=== PATIENT | male | born 1955 | race Caucasian/White ===

== ENCOUNTER 2020-12-24 11:33 | Emergency (ER) | payer MEDICARE, OTHER ==
[2020-12-24 11:43] VITALS: BP 120/73; PULSE 67; RESP 18; TEMP 97.7
[2020-12-24] MEDS ORDERED: DIPH,PERTUS(ACELL)TETVAC-LF 0.5 ML VIAL IM ONE (12:00)
[2020-12-24] MEDS ORDERED: LIDOCAINE 1% INJ 10MG/ML (20 ML MDV) SQ ONE (12:01)
--- NOTE | 2020-12-24 12:02 | ED ---
Wound/Laceration HPI - General Chief Complaint: Wound/Laceration Stated Complaint: finger lac Time Seen by Provider: 12/24/20 11:55 Source: patient, family Mode of arrival: ambulatory Limitations: no limitations - History of Present Illness Initial Comments: Patient is 65-year-old male who presented to the ER with a left fifth finger laceration. Patient stated that he snagged his finger on a nail all doing some work. He moved his hand while was snagged in it sliced filleted the pad of his fifth finger. He denied any pain. Just noted that it was bleeding pretty profusely. Patient stated that he didn't want to come to the ER but urged him to just because it was bleeding pretty bad. Patient had no other complaints or issues. Patient cannot remember his last tetanus shot. He denied any weakness, numbness, tingling in the left fifth finger. He denies any chest pain, shortness of breath, headache, nausea, vomiting, diarrhea, constipation, fever, fatigue, chills, night sweats - Related Data Home Medications Medication Instructions Recorded Confirmed No Known Home Medications 04/27/15 04/27/15 Allergies Allergy/AdvReac Type Severity Reaction Status Date / Time No Known Allergies Allergy Verified 12/24/20 11:43 Review of Systems ROS Statement: Those systems with pertinent positive or pertinent negative responses have been documented in the HPI. ROS Other: All systems not noted in ROS Statement are negative. Past Medical History Past Medical History: No Reported History History of Any Multi-Drug Resistant Organisms: None Reported Past Surgical History: No Surgical Hx Reported Past Psychological History: No Psychological Hx Reported Smoking Status: Current every day smoker Past Alcohol Use History: Occasional Past Drug Use History: None Reported General Exam Limitations: no limitations General appearance: alert, in no apparent distress Head exam: Present: atraumatic, normocephalic, normal inspection Eye exam: Present: normal appearance, PERRL, EOMI. Absent: scleral icterus, conjunctival injection, periorbital swelling Neck exam: Present: normal inspection. Absent: tenderness, meningismus, lymphadenopathy Respiratory exam: Present: normal lung sounds bilaterally. Absent: respiratory distress, wheezes, rales, rhonchi, stridor Cardiovascular Exam: Present: regular rate, normal rhythm, normal heart sounds. Absent: systolic murmur, diastolic murmur, rubs, gallop, clicks Extremities exam: Present: normal inspection, full ROM, normal capillary refill. Absent: tenderness, pedal edema, joint swelling, calf tenderness Neurological exam: Present: alert, oriented X3, CN II-XII intact Psychiatric exam: Present: normal affect, normal mood Skin exam: Present: warm, dry, intact, normal color, other (Laceration to the distal pad of the left fifth finger. Margins were clean laceration was flattened V). Absent: rash Course Vital Signs 12/24/20 11:40 Temperature 97.7 F Pulse Rate 67 Respiratory 18 Rate Blood Pressure 120/73 O2 Sat by Pulse 99 Oximetry Procedures - Laceration Laceration #1 Consent Obtained: verbal consent Indication: laceration Site: other (Distal left fifth digit) Size (cm): 2 Description: flap (With clean borders) Anesthetic Used: lidocaine 1% Anesthesia Technique: local infiltration Pre-repair: irrigated extensively Type of Sutures: vicryl Size of Sutures: 5-0 Number of Sutures: 6 Technique: simple, interrupted Patient Tolerated Procedure: well, no complications Medical Decision Making - Medical Decision Making 65-year-old with left fifth digit laceration. Patient tolerated sutures well. Disposition Clinical Impression: Laceration Disposition: HOME SELF-CARE Condition: Stable Instructions (If sedation given, give patient instructions): Laceration (ED), Care For Your Stitches (ED) Additional Instructions: Please return to the Emergency Department if symptoms worsen or any other concerns. Told patient to follow-up in 5-7 days for suture removal either in the ER or with primary care. Is patient prescribed a controlled substance at d/c from ED?: No Referrals: Raul Scott DO [Primary Care Provider] - 1-2 days Decision Time: 13:06
== END 2020-12-24 13:14 | disposition home or self-care (01) ==
LOC: EC 11:33
DX: S61.217A Laceration without foreign body of left little finger without damage to nail, initial encounter (principal); F17.200 Nicotine dependence, unspecified, uncomplicated; Z23 Encounter for immunization; W23.0XXA Caught, crushed, jammed, or pinched between moving objects, initial encounter
CPT/HCPCS: 90715; 99282; 90471; 12001; J2001

== ENCOUNTER → 2021-12-13 | Outpatient (CLI) | payer MEDICARE, OTHER ==
--- NOTE | 2021-12-14 09:02 | XR ---
EXAMINATION TYPE: XR chest 2V DATE OF EXAM: 12/13/2021 COMPARISON: NONE TECHNIQUE: PA and lateral views submitted. HISTORY: Cough FINDINGS: Diffuse hyperexpansion. Biapical pleural thickening. Heart size normal. Vague attenuation the left up per lobe adjacent to the left hilum. Hypertrophic and degenerative change of the spine. No pneumothorax or pleural effusion. IMPRESSION: 1. COPD with a 3.4 cm area of nodular attenuation left perihilar region and the lingular segment left upper lobe. Although this could represent pneumonia would recommend CT of the chest to exclude neopl asm.
== END | disposition home or self-care (01) ==
LOC: RADXRYALE 16:17
PROVIDERS: ATTEND Physician Assistant
DX: J44.9 Chronic obstructive pulmonary disease, unspecified (principal); R91.8 Other nonspecific abnormal finding of lung field
CPT/HCPCS: 71046

== ENCOUNTER → 2021-12-19 | Outpatient (CLI) | payer MEDICARE, OTHER ==
--- NOTE | 2021-12-19 09:52 | CT ---
EXAMINATION TYPE: CT chest wo con DATE OF EXAM: 12/19/2021 COMPARISON: Chest x-ray 12/13/2021 HISTORY: cough CT DLP: 480 mGycm. Automated Exposure Control for Dose Reduction was Utilized. TECHNIQUE: CT scan of the thorax is performed without IV contrast. FINDINGS: LUNGS: There is left upper lobe lung mass measuring approximately 3.4 cm in AP dimension by 2.4 cm in transverse by 2.9 cm in cephalad to caudal mention with spiculated margins, pleural extensions, spic ulations extending to the mediastinum. Underlying centrilobular and paraseptal emphysematous changes are extensive. Additional area of abnormal densities present in the left upper lobe laterally and mor e inferiorly which shows a somewhat lobular appearance and measures approximately 2.3 cm in AP dimens ion by 15 mm in transverse dimension by 14 mm in cephalad to caudal dimension, there are 2 distinct l obular masses at this level, smaller lesion more centrally measures approximately 13 mm in greatest d imension by 13 mm x 1 cm. There is pleural extension anterolaterally, some focal pleural thickening p resent. MEDIASTINUM: Lack of IV contrast is noted to limit evaluation for mediastinal and especially hilar ad enopathy. Suspect there is left hilar adenopathy, possible encasement of left upper lobe bronchus. No pericardial effusion. There are coronary artery calcifications. OTHER: Root of the aorta is enlarged at 4.3 cm. IMPRESSION: Findings worrisome for bronchogenic carcinoma, possible metastasis. Aortic aneurysm. Cons ider pulmonary consult. A Yellow level critical message alert has been initiated for Raul Scott DO via the [employer] Critical Results System on 12/19/2021 9:49 AM. This message alert has been sent to Raul ureña DO via the preferences provided by the clinician for the receipt of Radiology Critical Findings. Message ID [id number].
== END | disposition home or self-care (01) ==
LOC: RADCTMAIN 06:56
PROVIDERS: ATTEND Family Medicine
DX: R91.8 Other nonspecific abnormal finding of lung field (principal); I71.2 Thoracic aortic aneurysm, without rupture
CPT/HCPCS: 71250

== ENCOUNTER 2021-12-27 10:38 | Day surgery (SDC) | payer MEDICARE, OTHER ==
[2021-12-25 14:56] VITALS: BMI 21.4
[~2021-12-27 10:38] MED LIST: ALBUTEROL NEB (CONC) 2.5 MG/0.5 ML INHALATION ONE; LACTATED RINGERS 1,000 ML IV SCH; LIDOCAINE 2% (PF) 20 MG/ML 5 ML VIAL INHALATION ONE; LIDOCAINE VISCOUS 300 MG/15 ML CUP MUCOUS MEM ONE; SODIUM CHLORIDE 0.9% 1,000 ML IV SCH
[2021-12-27] MEDS ORDERED: LIDOCAINE 1% (10MG/ML) FOR IV START INTRADERMA ONE (11:23)
--- NOTE | 2021-12-27 12:22 | CT ---
EXAMINATION TYPE: CT Chest wo con Veran Protocol DATE OF EXAM: 12/27/2021 COMPARISON: Chest CT 8 days ago. HISTORY: Veran Protocol CT DLP: 657 mGycm Automated exposure control for dose reduction was used. FINDINGS: Exam is for bronchoscopy planning and not for diagnostic purposes. Background moderate underlying emp hysematous changes redemonstrated with persistent anterior left upper lung lobulated mass measuring 3 .4 x 2.4 cm axial image 36 series 6 current study. There is adjacent scarring with slight nodule or n odularity axial image 42 redemonstrated. Coronary artery calcification is again seen. IMPRESSION: As above.
[2021-12-27] MEDS ORDERED: ESMOLOL 100 MG/10 ML VIAL ONE (12:41)
[2021-12-27] MEDS ORDERED: ROCURONIUM 10 MG/ML (5 ML VIAL) IV ONE (12:41)
[2021-12-27] MEDS ORDERED: LIDOCAINE 1% INJ 10MG/ML (20 ML MDV) ONE (12:41)
[2021-12-27] MEDS ORDERED: fentaNYL (PF) 50 MCG/ML 2 ML AMP ONE (12:41)
[2021-12-27] MEDS ORDERED: GLYCOPYRROLATE 0.2 MG/ML 2 ML VIAL ONE (12:41)
[2021-12-27] MEDS ORDERED: PROPOFOL 10 MG/ML 20 ML VIAL IV ONE (12:41)
[2021-12-27] MEDS ORDERED: MIDAZOLAM 2 MG/2 ML VIAL ONE (12:41)
[2021-12-27] MEDS ORDERED: SUCCINYLCHOLINE CHLORIDE VIAL 200 MG/10 ML VIAL IV ONE (12:41)
[2021-12-27] MEDS ORDERED: NEOSTIGMINE 1 MG/ML 10 ML VIAL ONE (12:41)
--- NOTE | 2021-12-27 13:59 | P.PCN ---
Date of Procedure: 12/27/21 Preoperative Diagnosis: ISABELA mass Left Hilar adenopathy Postoperative Diagnosis: 1 left upper lobe mass 2 left hilar lymphadenopathy 3 extensive compression of the left upper lobe bronchus causing significant narrowing of the radius segments of the left upper lobe along with evidence of some endobronchial invasion and irregularities affecting left upper lobe bronchus. Procedure(s) Performed: 1 Navigational bronchoscopy 2 Endobronchial biopsies , left upper lobe bronchus 3 Endobronchial brushing left upper lobe bronchus 4 bronchioalveolar lavage, left upper lobe bronchus 5 EBUS and EBUS guided transbronchial needle aspirate of left hilar lymph node Anesthesia: MARINAA Surgeon: Mirela Calero Estimated Blood Loss (ml): 5 Pathology: other Condition: stable Disposition: same day Operative Findings: After obtaining the consent the patient was taken to the OR suite he was intubated and put on MV by anesthesia then the scope was advanced to the ET tube until the Trachea was seen and it was normal and then the sandhya appears normal then the scope advanced to the left main and ISABELA and immediately was clear that the left upper lobe bronchus was extrinsically compressed and endobronchially, there was significant irregularities causing narrowing of the left upper lobe bronchus with reduction in the caliber by around 80-90%. Based on that, I was unable to advancement bronchoscope to evaluate LB 1, LB 2 and LB 3. The scope advanced to the lingula and the LB4 and LB5 were seen and no endobronchial lesions were seen the scope retracted and advanced to the left lower lobes LB6 to LB12 were seen one by one and no endobronchial lesions, then the scope was retracted back to the sandhya and advanced to the Right main and RUL RB1 and RB2 and RB3 were seen one by one and no endobronchial lesions were seen the scope then retracted and advanced to the BI and RML RB4 and RB5 were seen and no endobronchial lesions were seen then it was retracted and advanced to the RLL RB6 to RB12 were seen one by one and no endobronchial lesions. As mentioned, I was unable to advance the bronchoscope into the left upper lobe bronchus. Based on that, I performed endobronchial biopsies of the left upper lobe bronchus and I also performed endobronchial brushings and bronchial lavage of the left upper lobe was done by a total of 80cc of fluid was infused and with 20 mL of aspirate was obtained. Then EBUS was used and the lymph nodes were examined. The rectal examination of the left side involving the left paratracheal area that showed no evidence of any lymphadenopathy. Distally, at the level of the distal left main sandhya and secondary sandhya left upper and left lower lobe, there was significant amount of endobronchial irregularities and I was unable to push the EBUS past the main sandhya. Nevertheless, at the distal left mainstem bronchus, left hilar mass/lymphadenopathy was observed consistent with station 10 L lymph nodes. EBUS guided transbronchial needle aspirate was obtained and multiple passes were taken and samples were evaluated at the bedside by pathology. Several passes were obtained and the fifth past showed evidence of abnormal cells consistent with malignancy. The rest of samples were placed and formalin and sent for cellblock. Patient rated the procedure well. The patient was extubated and transferred to recovery in stable condition. The chest x-ray is to follow.
[2021-12-27 14:17] VITALS: TEMP 97.4
[2021-12-27 14:39] VITALS: PULSE 72; RESP 18
[2021-12-27 15:25] VITALS: BP 122/73
== END 2021-12-27 15:41 | disposition home or self-care (01) ==
LOC: ORWHC2ENDO 10:38
PROVIDERS: ATTEND Internal Medicine Critical Care Medicine
DX: C34.12 Malignant neoplasm of upper lobe, left bronchus or lung (principal); C96.9 Malignant neoplasm of lymphoid, hematopoietic and related tissue, unspecified; H91.93 Unspecified hearing loss, bilateral; N40.1 Benign prostatic hyperplasia with lower urinary tract symptoms; R33.8 Other retention of urine; I10 Essential (primary) hypertension; J44.9 Chronic obstructive pulmonary disease, unspecified; E78.2 Mixed hyperlipidemia; E55.9 Vitamin D deficiency, unspecified; G47.00 Insomnia, unspecified; I25.10 Atherosclerotic heart disease of native coronary artery without angina pectoris; I71.2 Thoracic aortic aneurysm, without rupture; Z81.8 Family history of other mental and behavioral disorders; Z87.891 Personal history of nicotine dependence; Z98.52 Vasectomy status; Z98.890 Other specified postprocedural states; Z79.82 Long term (current) use of aspirin; Z79.51 Long term (current) use of inhaled steroids; Z79.899 Other long term (current) drug therapy
CPT/HCPCS: 88104; 88108; 88305; 88173; 88342; 88341; 71250; 31625; 31623; 31624; 31627; 31652; J2250; J0330; J2710; J2001; J3010; J2704; 31629

== ENCOUNTER → 2022-01-04 | Outpatient (CLI) | payer MEDICARE, OTHER ==
--- NOTE | 2022-01-09 13:31 | PE ---
Nuclear medicine PET/CT HISTORY: solitary pulmonary nodule left, initial Patient received 11 mCi F-18 FDG intravenously in delayed scanning was performed from the skull base to the mid thighs. A localization and attenuation correction CT scan was performed. Comparison to chest CT 12/19/2021 Chest and neck: There is no cervical or supraclavicular adenopathy. Aorticopulmonary window deandre and left hilar adenopathy is present, encasement of the left upper lobe bronchus is associated with hypermetabolic uptake, SUV 12.5. The left upper lobe mass is again seen and shows associated uptake SUV 18 with extension to the pleural surface, mediastinal surface, smalle r area of nodularity pleural thickening is again seen without significant uptake, SUV 1.7 anteriorly. There is underlying emphysema. No axillary adenopathy. There are coronary artery calcifications, no pleural or pericardial effusion. Incidental probable naz aceous cyst over the upper back on the left measures 3.8 cm. ABDOMEN: There is no evident liver mass or retroperitoneal adenopathy. Gallbladder, left adrenal glan d, spleen and pancreas are unremarkable. Some mild increased uptake at the upper pole the left kidney is indeterminate. There is some mild uptake associated with the right adrenal gland as compared to t he left. There is no ascites. No bowel obstruction. Aorta shows atheromatous change. Prostate shows a ssociated calcification. No pelvic adenopathy or free fluid. Uptake along the bowel is felt likely to be physiologic. Osseous structures: There is a focus of uptake along the proximal right femoral diaphysis medially, a ssociated focus of cortical destruction is noted, SUV 5.8. Lytic lesion also is present involving the posterior elements of L5 at the midline and extending on the left, SUV is 13.7. There is a focus of uptake present at the posterior aspect of the right ischium possibly within the soft tissues and also the lateral aspect of the right hip joint \at the posterior aspect of the ischial tuberosity of ques tionable clinical significance. 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
== END | disposition home or self-care (01) ==
LOC: RADPETMAIN 07:34
PROVIDERS: ATTEND Internal Medicine Critical Care Medicine
DX: C79.51 Secondary malignant neoplasm of bone (principal); C34.12 Malignant neoplasm of upper lobe, left bronchus or lung
CPT/HCPCS: 78815; A9552

== ENCOUNTER → 2022-01-05 | Outpatient (CLI) | payer MEDICARE, OTHER ==
--- NOTE | 2022-01-05 10:59 | MR ---
EXAMINATION TYPE: MR brain wo/w con DATE OF EXAM: 01/05/2022 COMPARISON: NONE HISTORY: Lung cancer, evaluate for metastatic disease. TECHNIQUE: Multiplanar, multisequence images of the brain and brainstem is performed without and with IV contras t, utilizing 7 mL intravenous Gadavist . FINDINGS: Diffusion weighted images demonstrate no evidence of a recent infarct or other diffusion ab normality. There is mild ventricular and sulcal prominence. A few tiny scattered foci T2 hyperintens ity seen throughout the white matter bilaterally. Approximately 5 -8 tiny scattered foci of T2 hyperi ntensity are seen. Midline structures demonstrate normal morphology. The craniocervical junction appears within normal limits. Post contrast images demonstrate no abnormal enhancement. The dural venous sinuses appear pa tent. The visualized sinuses are clear and the globes are intact. Nasal septum is deviated to the lef t of midline. IMPRESSION: 1. No abnormal enhancing masses to suggest metastatic disease to the brain. 2. Background mild diffuse age-related cerebral atrophy and chronic small vessel ischemic change is a ppreciated.
== END | disposition home or self-care (01) ==
LOC: RADMRIMAIN 09:50
PROVIDERS: ATTEND Internal Medicine Hematology & Oncology
DX: C34.32 Malignant neoplasm of lower lobe, left bronchus or lung (principal)
CPT/HCPCS: 70553; A9585

== ENCOUNTER → 2022-01-10 | Outpatient (CLI) | payer MEDICARE, OTHER ==
--- NOTE | 2022-01-10 10:46 | XR ---
EXAMINATION TYPE: XR femur RT DATE OF EXAM: 01/10/2022 COMPARISON: PET CT 01/04/2022 HISTORY: 66-year-old male C34.32, lung cancer, positive PET scan right femur. TECHNIQUE: 2 views FINDINGS: Mild age-related degenerative spurring of the right hip with relative preservation of hip joint space . There is some focal cortical permeative lucency involving the medial cortex of the proximal femoral s haft. This corresponds to the area of increased uptake on PET scan. No acute fracture or dislocation. IMPRESSION: 1. Some focal permeative lucency involving the medial cortex of the proximal femoral shaft correspond ing to the area of abnormal uptake on PET/CT. Findings suggest a cortical metastasis. 2. If the lesion enlarges, there could be subsequent risk for pathologic fracture.
== END | disposition home or self-care (01) ==
LOC: RADXRMAIN 10:13
PROVIDERS: ATTEND Internal Medicine Hematology & Oncology
DX: C34.32 Malignant neoplasm of lower lobe, left bronchus or lung (principal); E78.5 Hyperlipidemia, unspecified; I10 Essential (primary) hypertension; I25.2 Old myocardial infarction

== ENCOUNTER → 2022-03-13 | Outpatient (CLI) | payer MEDICARE, OTHER | END | disposition home or self-care (01) | LOC: RADMRIMAIN 14:55 | PROVIDERS: ATTEND Internal Medicine Hematology & Oncology | DX: Z53.9 Procedure and treatment not carried out, unspecified reason (principal) ==

== ENCOUNTER → 2022-03-27 | Outpatient (CLI) | payer MEDICARE, OTHER ==
--- NOTE | 2022-03-28 02:19 | MR ---
EXAMINATION TYPE: MR hip RT wo/w con DATE OF EXAM: 03/27/2022 COMPARISON: None HISTORY: Right hip pain x 3 months, hx lung cancer. CONTRAST: Standard multiplanar, multisequence MRI departmental protocol images were obtained without contrast a nd with 8 mL intravenous Gadavist gadolinium contrast. Multiplanar multi echo imaging of the right hip without and with IV contrast. The proximal femurs and hip joints are intact. Acetabula appear intact. I see no focal bone destructi on. No evidence of avascular necrosis. Urinary bladder distends smoothly. No free fluid in the pelvis. No evidence of inguinal hernia. There is right-sided scrotal hydrocele. There is no evidence of hip joint effusion. No pathologic enhancem ent. No evidence of soft tissue mass. IMPRESSION: Negative MR scan of the right hip. No evidence of metastatic disease. No evidence of avascular necros is.
== END | disposition home or self-care (01) ==
LOC: RADMRIMAIN 20:34
PROVIDERS: ATTEND Internal Medicine Hematology & Oncology
DX: M25.551 Pain in right hip (principal); Z85.118 Personal history of other malignant neoplasm of bronchus and lung
CPT/HCPCS: 73723; A9585

== ENCOUNTER → 2022-04-11 | Outpatient (CLI) | payer MEDICARE, OTHER ==
--- NOTE | 2022-04-11 15:40 | XR ---
EXAMINATION TYPE: XR femur RT DATE OF EXAM: 04/11/2022 CLINICAL HISTORY: Pain TECHNIQUE: Two views of the right femur are obtained. COMPARISON: 01/10/2022 FINDINGS: There is no acute fracture or dislocation seen in the right femur. Mild axial narrowing of the joint space. Vascular calcifications. Previous area of reduced mineralization of the proximal fe moral cortex is stable to the prior exam. No new areas of lucency identified. Arthropathy of the knee joint. IMPRESSION: 1. Focal permeative lucency involving the medial cortex proximal right femur stable. Recommend bone s can. 2. Hip and knee arthropathy.
== END | disposition home or self-care (01) ==
LOC: RADXRMAIN 15:09
PROVIDERS: ATTEND Nurse Practitioner Adult Health
DX: M12.861 Other specific arthropathies, not elsewhere classified, right knee (principal); M12.851 Other specific arthropathies, not elsewhere classified, right hip; R93.7 Abnormal findings on diagnostic imaging of other parts of musculoskeletal system

== ENCOUNTER → 2022-05-10 | Outpatient (CLI) | payer MEDICARE, OTHER ==
--- NOTE | 2022-05-17 12:59 | PE ---
Nuclear medicine PET/CT HISTORY: Lung carcinoma, follow-up, subsequent, C 34.32 Patient received 13.6 mCi F-18 FDG intravenously and delayed scanning was performed from the skull ba se to the mid thighs. A localization and attenuation correction CT scan was performed. Correlation to prior nuclear medicine PET/CT 01/04/2022 Average mediastinal uptake SUV is 1.3, average liver uptake SUV is 2.1 Chest and neck: There is no cervical or supraclavicular adenopathy. No axillary or hilar adenopathy. Patient's left lung mass shows only mild hypermetabolic uptake SUV 3.2 in the left upper lobe, reduce d from previous exam, the mass also shows a reduction in size and now measures 2.7 cm in AP dimension as compared to previous exam when it measured 3.8 cm, there is some local scarring present, pleural extension similar to prior without significant uptake. The marked mediastinal uptake seen on prior ex am has resolved, aorticopulmonary window nodes with SUV 2.3, adenopathy is decreased in size. There i s no pleural or pericardial effusion. At the left upper lobe there is a nodule, axial image 105 measu ring only 4 to 5 mm in size, some groundglass opacity noted on axial image 96 at the left upper lobe was not seen on prior, there are some interstitial changes present, emphysema is noted. There is sola nary artery calcification. ABDOMEN: There is no adrenal mass or retroperitoneal adenopathy. No evident ascites or suspicious upt kamilla. Osseous structures show improvement in abnormal uptake. IMPRESSION: Tumor response as described
== END | disposition home or self-care (01) ==
LOC: RADPETMAIN 13:30
PROVIDERS: ATTEND Internal Medicine Hematology & Oncology
DX: C34.32 Malignant neoplasm of lower lobe, left bronchus or lung (principal)
CPT/HCPCS: 78815; A9552

== ENCOUNTER → 2022-11-15 | Outpatient (CLI) | payer MEDICARE, OTHER ==
--- NOTE | 2022-11-18 06:43 | PE ---
EXAMINATION TYPE: PET CT fusion skull to thigh DATE OF EXAM: 11/15/2022 COMPARISON: Prior PET/CT May 10, 2022 and older study. 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 Originally diagnosed December 2021. Last c hemotherapy and immunotherapy November 14. TECHNIQUE: Following the intravenous administration of 9.39 mCi of F-18 FDG, whole body images are p erformed from the skull base to the midthigh. Images are reviewed on the computer in the coronal, ax ial, and sagittal planes. Reconstructed rotating images are created on independent workstation and r eviewed on the computer. A localization and attenuation correction CT is performed in conjunction w ith the PET scan. Blood glucose level equals 105 SCAN: Subsequent Scan FINDINGS: SKULL BASE AND NECK: No new areas of abnormal hypermetabolic uptake. CHEST, MEDIASTINUM, AND HILAR REGION: Background mild to moderate underlying emphysematous change is redemonstrated. Persistent anterior left midlung 2.7 x 1.7 cm lesion axial image 109 is fairly stable in size from most recent PET/CT and currently ametabolic with small area of mild hypermetabolic upta ke along the inferior medial aspect max SUV 1.83 that is less prominent from prior where max SUV was 3.22. Slight subcentimeter nodularity anterior left suprahilar region axial image 106 has mild hypermetabol ic uptake with Max SUV 3.03 versus 2.26 on prior Inferior, borderline significantly increased. There is persistent peripheral elongated slightly thickened consolidation measuring near 4.1 x 1.4 cm favoring focal scarring that remains ametabolic on axial image 121. Stable in size and appearance fr om prior. No new areas of abnormal hypermetabolic uptake. ABDOMEN AND PELVIS: Normal excretion. No new areas of abnormal hypermetabolic uptake. OSSEOUS STRUCTURES: No new areas of abnormal hypermetabolic uptake. OTHER CT: Mild calcified plaque bilateral carotid bulb level. At least moderate coronary artery calci fication redemonstrated. IMPRESSION: Overall mixed response. Positive treatment response to the anterior left mid lung nodule or neoplasm but increased max SUV noted at the left suprahilar region.
== END | disposition home or self-care (01) ==
LOC: RADPETMAIN 09:31
PROVIDERS: ATTEND Internal Medicine Hematology & Oncology
DX: C34.32 Malignant neoplasm of lower lobe, left bronchus or lung (principal)
CPT/HCPCS: 78815; A9552

== ENCOUNTER → 2023-02-28 | Outpatient (CLI) | payer MEDICARE, OTHER ==
--- NOTE | 2023-03-03 08:37 | PE ---
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 Originally diagnosed December 2021. Last i mmunotherapy yesterday. TECHNIQUE: Following the intravenous administration of 11.9 mCi of F-18 FDG, whole body images are p erformed from the skull base to the midthigh. Images are reviewed on the computer in the coronal, ax ial, and sagittal planes. Reconstructed rotating images are created on independent workstation and r eviewed on the computer. A localization and attenuation correction CT is performed in conjunction w ith the PET scan. Blood glucose level equals 87. SCAN: Subsequent Scan FINDINGS: SKULL BASE AND NECK: No new areas of abnormal hypermetabolic uptake. CHEST, MEDIASTINUM, AND HILAR REGION: Background mild to moderate underlying emphysematous change is redemonstrated. Persistent anterior left midlung 2.8 x 1.5 cm lesion axial image 104 is redemonstrate d and stable in size from most recent PET/CT and remains ametabolic unchanged in appearance from most recent study. Slight subcentimeter nodularity anterior left suprahilar region axial image 106 has mild hypermetabol ic uptake with Max SUV of 3.40 versus 3.03 on prior. There is persistent peripheral elongated slightly thickened consolidation measuring near 4.0 x 1.5 cm cm favoring focal scarring that remains ametabolic on axial image 115 current study. Stable in size and appearance from prior. No new areas of abnormal hypermetabolic uptake. ABDOMEN AND PELVIS: Normal excretion. No new areas of abnormal hypermetabolic uptake. OSSEOUS STRUCTURES: No new areas of abnormal hypermetabolic uptake. OTHER CT: Mild calcified plaque bilateral carotid bulb level. At least moderate coronary artery calci fication redemonstrated. IMPRESSION: Overall stable findings. Some residual neoplasm at left suprahilar level cannot be exclud ed but shows no significant change from most recent PET/CT. No new suspicious hypermetabolic areas ar e identified.
== END | disposition home or self-care (01) ==
LOC: RADPETMAIN 14:53
PROVIDERS: ATTEND Internal Medicine Hematology & Oncology
DX: C34.32 Malignant neoplasm of lower lobe, left bronchus or lung (principal)
CPT/HCPCS: 78815; A9552

== ENCOUNTER → 2023-08-09 | Outpatient (CLI) | payer MEDICARE, OTHER ==
--- NOTE | 2023-08-12 19:31 | PE ---
EXAMINATION TYPE: PET CT fusion skull to thigh DATE OF EXAM: 08/09/2023 COMPARISON: No recent prior CT Prior PET/CT: 02/28/2023 HISTORY: Lung cancer TECHNIQUE: Following the intravenous administration of 12.84 mCi of F-18 FDG, whole body images are performed from the skull base to the midthigh. Images are reviewed on the computer in the coronal, a xial, and sagittal planes. Reconstructed rotating images are created on independent workstation and reviewed on the computer. A localization and attenuation correction CT is performed in conjunction with the PET scan. DLP: 374.6 mGycm SCAN: Subsequent Blood glucose: 105 mg/dL Average Mediastinum SUV: 1.5 to Average Liver SUV: 1.62 FINDINGS: NECK: No abnormal uptake THORAX: There is a focus of uptake within the left suprahilar region with an SUV of 2.87, image 102. Metastatic lesion should be suspected. There is mild uptake within the anterior medial left lung mass with an SUV value 0.81, image 105. This can be compatible with a treated lesion. There is some mild uptake in the right infrahilar region which is nonspecific. Finding could be relat ed to some inflammatory change. Metastatic disease potentially within the differential. SUV value 1.4 6, image 118. ABDOMEN: No abnormal uptake PELVIS: No abnormal uptake OSSEOUS STRUCTURES: No abnormal uptake LOCALIZATION CT: Increased densities along the anterior margin of anterolateral left lung, seen. This has an SUV value 1.14 and measures 1.2 cm. This is similar to comparison. Previous medial left upper lung field density with stranding smaller than comparison currently 1.2 cm and 1.17 SUV versus 1.4 c m previous. Image 105 COMPARISON: Mild uptake within the left suprahilar region is diminished in SUV from comparison. The m ild uptake in additional regions appears intermediate signal which may be stable or recurrent neoplas m. Hypermetabolic areas are not identified. IMPRESSION: 1. Residual hyperintensity at the left suprahilar region is diminishing in SUV appears to been improv ement. 2. Remaining lung mass areas have intermediate uptake which is not significantly change from comparis on.
== END | disposition home or self-care (01) ==
LOC: RADPETMAIN 09:28
PROVIDERS: ATTEND Internal Medicine Hematology & Oncology
DX: C34.32 Malignant neoplasm of lower lobe, left bronchus or lung (principal); R91.8 Other nonspecific abnormal finding of lung field
CPT/HCPCS: 78815; A9552

== ENCOUNTER → 2024-02-05 | Outpatient (CLI) | payer MEDICARE, OTHER ==
--- NOTE | 2024-02-09 10:03 | PE ---
EXAMINATION TYPE: PET CT fusion skull to thigh DATE OF EXAM: 02/05/2024 COMPARISON: Most recent prior PET/CT August 09, 2023 and older studies HISTORY: Left-sided lung cancer progress study originally diagnosed in January 2022 completed critical access hospital January 2023. TECHNIQUE: Following the intravenous administration of 12.35 mCi of F-18 FDG, whole body images are performed from the skull base to the midthigh. Images are reviewed on the computer in the coronal, a xial, and sagittal planes. Reconstructed rotating images are created on independent workstation and reviewed on the computer. A localization and attenuation correction CT is performed in conjunction with the PET scan. Blood glucose level was 86. SCAN: Subsequent Scan FINDINGS: SKULL BASE AND NECK: No new areas of abnormal hypermetabolic uptake. CHEST, MEDIASTINUM, AND HILAR REGION: There is a focus of uptake within the left suprahilar region re demonstrated with max SUV of 8.71 current study axial image 99 increased from 2.87 most recent prior. There is increased hypermetabolic uptake within the anterior medial left lung mass with Max SUV 5.86 axial image 105 on current study. No additional areas of new abnormal increased hypermetabolic uptake. ABDOMEN AND PELVIS: No new areas of abnormal hypermetabolic uptake. OSSEOUS STRUCTURES: Abnormal hypermetabolic uptake anterior left shoulder region favors inflammatory etiology axial image 74. OTHER CT: Moderate underlying emphysematous changes redemonstrated. Coronary artery calcifications an d/or stents are again seen. IMPRESSION: Worsening abnormal hypermetabolic uptake anterior left midlung and left hilar region cons istent with active neoplastic progression.
== END | disposition home or self-care (01) ==
LOC: RADPETMAIN 10:04
PROVIDERS: ATTEND Internal Medicine Hematology & Oncology
DX: C34.32 Malignant neoplasm of lower lobe, left bronchus or lung (principal)
CPT/HCPCS: 78815; A9552

== ENCOUNTER 2024-02-10 08:07 | Observation (INO) | payer MEDICARE, OTHER ==
[2024-02-10] MEDS: ASPIRIN 81 MG PO STA (08:32)
[2024-02-10] MEDS: SODIUM CHLORIDE 0.9% 1,000 ML IV STA (08:33)
[2024-02-10] MEDS: NITROGLYCERIN SL TABS 0.4 MG TAB SUBLINGUAL STA (08:33)
[2024-02-10 08:37] LABS: Basophils # (A) 0.1 k/uL (0-0.2); Basophils % (A) 1 %; Eosinophils # (A) 0.2 k/uL (0-0.7); Eosinophils % (A) 2 %; HCT 46.9 % (39.0-53.0); HGB 15.6 gm/dL (13.0-17.5); Lymphocytes # (A) 2.9 k/uL (1.0-4.8); Lymphocytes % (A) 29 %; MCH 32.8 pg (25.0-35.0); MCHC 33.2 g/dL (31.0-37.0); MCV 98.9 fL (80.0-100.0); Mean Platelet Volume 7.2; Monocytes # (A) 0.7 k/uL (0-1.0); Monocytes % (A) 7 %; Neutrophils % (A) 60 %; Platelet Count 320 k/uL (150-450); RBC 4.74 m/uL (4.30-5.90); RDW 13.2 % (11.5-15.5)
--- NOTE | 2024-02-10 08:40 | ED ---
General Adult HPI - General Chief complaint: Shortness of Breath Stated complaint: chest pain Time Seen by Provider: 02/10/24 08:16 Source: patient, family, RN notes reviewed, old records reviewed Mode of arrival: ambulatory Limitations: no limitations - History of Present Illness Initial comments: Patient is a 68-year-old male who presents emergency department complaining of shortness of breath. Has a history of lung cancer currently on immunotherapy. States he awoke this morning complaining of sudden onset nausea, vomiting with mild jaw numbness as well as generalized chest tightness and epigastric abdominal pain. States this is similar to when he required a cardiac stent multiple years ago. States symptoms are all subsiding at this time. Does not follow-up with a certified personal finance counselor. States he feels short of breath because of the symptoms. Denies any recent fevers, cough, congestion. Denies any diarrhea. Had nonbilious nonbloody emesis. Denies any fevers. Has no other acute complaints at this time. Is not on blood thinners. Denies any lower extremity edema or pain. Presents for further evaluation. - Related Data Home Medications Medication Instructions Recorded Confirmed No Known Home Medications 02/10/24 02/10/24 Allergies Allergy/AdvReac Type Severity Reaction Status Date / Time No Known Allergies Allergy Verified 02/10/24 11:48 Review of Systems ROS Statement: Those systems with pertinent positive or pertinent negative responses have been documented in the HPI. Review of Systems: CONST: Denies fever EYES: Denies blurry vision ENT: Denies nasal congestion C/V: Endorses generalized chest tightness RESP: Endorses improving shortness of breath GI: Endorses epigastric abdominal pain : Denies dysuria SKIN: Denies rash. MSK: Denies joint pain. NEURO: Denies headache ROS Other: All systems not noted in ROS Statement are negative. Past Medical History Past Medical History: Hearing Disorder / Deafness, Myocardial Infarction ([place]) Additional Past Medical History / Comment(s): Hard of hearing. Last Myocardial Infarction Date:: 2015 History of Any Multi-Drug Resistant Organisms: None Reported Past Surgical History: Heart Catheterization With Stent Additional Past Surgical History / Comment(s): Stent X1. Past Anesthesia/Blood Transfusion Reactions: No Reported Reaction Date of Last Stent Placement:: 08/2016 Past Psychological History: No Psychological Hx Reported Smoking Status: Former smoker Past Alcohol Use History: Occasional Past Drug Use History: None Reported - Past Family History Brother(s) Family Medical History: Cancer Additional Family Medical History / Comment(s): Lung cancer. General Exam - General Exam Comments Initial Comments: General: Appears in no acute distress. HEAD: Normal with no signs of head trauma. EYES: PERRLA, EOMI, conjunctiva normal, no discharge. ENT: Hearing grossly intact, normal oropharynx. RESPIRATORY: Clear breath sounds bilaterally. No wheezes, rales, or rhonchi. No significant increased work of breathing. No hypoxia. C/V: Regular rate and rhythm. S1 and S2 auscultated, no significant edema, peripheral pulses 2+ and intact throughout ABD: Mild epigastric abdominal discomfort on palpation. EXT: Normal range of motion, no obvious deformity SKIN: No rashes or lesions observed on exposed skin. NEURO: Alert and oriented x 4. Limitations: no limitations Course Vital Signs 02/10/24 02/10/24 02/10/24 08:10 09:37 09:45 Temperature 97.5 F L Pulse Rate 89 67 62 Respiratory 20 18 Rate Blood Pressure 128/80 94/53 O2 Sat by Pulse 98 97 Oximetry 02/10/24 02/10/24 09:52 11:20 Temperature Pulse Rate 59 L 61 Respiratory 18 Rate Blood Pressure 95/65 O2 Sat by Pulse 96 Oximetry Medical Decision Making - Medical Decision Making Was pt. sent in by a medical professional or institution ([facility]eto, [employer], urgent care, hospital, or snf...) When possible be specific @ -No Did you speak to anyone other than the patient for history (EMS, parent, family, police, friend...)? What history was obtained from this source @ -No Did you review nursing and triage notes (agree or disagree)? Why? @ -I reviewed and agree with nursing and triage notes Were old charts reviewed (outside hosp., previous admission, EMS record, old EKG, old radiological studies, urgent care reports/EKG's, snf records)? Report findings @ -No old charts were reviewed Differential Diagnosis (chest pain, altered mental status, abdominal pain women, abdominal pain men, vaginal bleeding, weakness, fever, dyspnea, syncope, headache, dizziness, GI bleed, back pain, seizure, CVA, palpatations, mental health, musculoskeletal)? @ -Differential Chest Pain: Stable Angina, Unstable Angina, STEMI, NSTEMI Aortic Dissection, Pneumothorax, Musculoskeletal, Esophageal Spasm GERD, Cholecystitis, Pancreatitis, Zoster, this is not meant to be an all-inclusive list. EKG interpreted by me (3pts min.). @ -As above X-rays interpreted by me (1pt min.). @ -Chest x-ray reveals no obvious acute cardiopulmonary process. CT interpreted by me (1pt min.). @ -None done U/S interpreted by me (1pt. min.). @ -Ultrasound of the gallbladder shows no obvious acute process. What testing was considered but not performed or refused? (CT, X-rays, U/S, labs)? Why? @ -None What meds were considered but not given or refused? Why? @ -None Did you discuss the management of the patient with other professionals (professionals i.e. , PA, [employer], lab, RT, psych nurse, social welfare administrator, dust puller, teacher, operations officer trust department, rn case manager hospice)? Give summary @ -Discussed with Dr. Mosquera who accepted the admission. Was smoking cessation discussed for >3mins.? @ -No Was critical care preformed (if so, how long)? @ -No Were there social determinants of health that impacted care today? How? (Homelessness, low income, unemployed, alcoholism, drug addiction, transportation, low edu. Level, literacy, decrease access to med. care, senior care, rehab)? @ -No Was there de-escalation of care discussed even if they declined (Discuss DNR or withdrawal of care, Hospice)? DNR status @ -No What co-morbidities impacted this encounter? (DM, HTN, Smoking, COPD, CAD, Cancer, CVA, ARF, Chemo, Hep., AIDS, mental health diagnosis, sleep apnea, morbid obesity)? @ -None Was patient admitted / discharged? Hospital course, mention meds given and route, prescriptions, significant lab abnormalities, going to OR and other pertinent info. @ -Based on the patient's presentation and physical exam, has a history of cancer. Currently complaining of generalized chest tightness, shortness of breath, nausea, vomiting and epigastric abdominal pain. States symptoms are similar to when he required a cardiac stent 5 years ago. All occurred approximately 30 minutes prior to arrival. Currently states they are resolving at this time. We will obtain cardiopulmonary workup as well as obtain ultrasound of his gallbladder. Patient was in agreement this plan. He will be symptomatically treated with a dose of nitro, aspirin, DuoNeb, as well as a 1 L fluid bolus. Patient will be given IV Zofran and Protonix as well. He was in agreement this plan. Vital signs are within acceptable limits at this time. Nitro did not affect the patient's pain at all. Patient administered Toradol and other analgesia medications at this time. Pain is nearly resolved. EKG shows no signs of acute ischemia.Since imaging unremarkable including ultras ound of the gallbladder. Laboratory studies remarkable for D-dimer within acceptable limits. Troponin is undetectable. BNP within normal limits. On reevaluation, patient is resting comfortably. He is asymptomatic. Patient's heart score is moderate at 4 and therefore we will admit the patient to observation telemetry for cardiology evaluation. We will trend the troponin. Echo ordered. He was in agreement this plan. I spoke with the admitting physician, Dr. Mosquera accepted the admission. Cardiology consulted. Undiagnosed new problem with uncertain prognosis? @ -No Drug Therapy requiring intensive monitoring for toxicity (Heparin, Nitro, Insulin, Cardizem)? @ -No Were any procedures done? @ -No Diagnosis/symptom? @ -Chest pain Acute, or Chronic, or Acute on Chronic? @ -Acute Uncomplicated (without systemic symptoms) or Complicated (systemic symptoms)? @ -Complicated Side effects of treatment? @ -None Exacerbation, Progression, or Severe Exacerbation] @ -No Poses a threat to life or bodily function? @ -Yes - Lab Data Result diagrams: 02/10/24 08:26 02/10/24 08:26 Lab Results 02/10/24 02/10/24 02/10/24 Range/Units 08:26 08:26 08:26 WBC 10.0 (3.8-10.6) k/uL RBC 4.74 (4.30-5.90) m/uL Hgb 15.6 (13.0-17.5) gm/dL Hct 46.9 (39.0-53.0) % MCV 98.9 (80.0-100.0) fL MCH 32.8 (25.0-35.0) pg MCHC 33.2 (31.0-37.0) g/dL RDW 13.2 (11.5-15.5) % Plt Count 320 (150-450) k/uL MPV 7.2 Neutrophils % 60 % Lymphocytes % 29 % Monocytes % 7 % Eosinophils % 2 % Basophils % 1 % Neutrophils # 6.0 (1.3-7.7) k/uL Lymphocytes # 2.9 (1.0-4.8) k/uL Monocytes # 0.7 (0-1.0) k/uL Eosinophils # 0.2 (0-0.7) k/uL Basophils # 0.1 (0-0.2) k/uL PT 9.7 L (10.0-12.5) sec INR 0.9 (<1.2) APTT 24.7 (22.0-30.0) sec D-Dimer 0.53 (<0.60) mg/L FEU Sodium (137-145) mmol/L Potassium (3.5-5.1) mmol/L Chloride (98-107) mmol/L Carbon Dioxide (22-30) mmol/L Anion Gap mmol/L BUN (9-20) mg/dL Creatinine (0.66-1.25) mg/dL Est GFR (CKD-EPI)AfAm (>60 ml/min/1.73 sqM) Est GFR (CKD-EPI)NonAf (>60 ml/min/1.73 sqM) Glucose (74-99) mg/dL Plasma Lactic Acid Garrett (0.7-2.0) mmol/L Calcium (8.4-10.2) mg/dL Magnesium (1.6-2.3) mg/dL Total Bilirubin (0.2-1.3) mg/dL AST (17-59) U/L ALT (4-49) U/L Alkaline Phosphatase (38-126) U/L Troponin I (0.000-0.034) ng/mL NT-Pro-B Natriuret Pep pg/mL Total Protein (6.3-8.2) g/dL Albumin (3.5-5.0) g/dL Urine Color Colorless Urine Appearance Clear (Clear) Urine pH 6.0 (5.0-8.0) Ur Specific [place] 1.007 (1.001-1.035) Urine Protein Negative (Negative) Urine Glucose (UA) Negative (Negative) Urine Ketones Negative (Negative) Urine Blood Negative (Negative) Urine Nitrite Negative (Negative) Urine Bilirubin Negative (Negative) Urine Urobilinogen <2.0 (<2.0) mg/dL Ur Leukocyte Esterase Negative (Negative) Influenza Type A (PCR) (Not Detectd) Influenza Type B (PCR) (Not Detectd) RSV (PCR) (Not Detectd) SARS-CoV-2 (PCR) (Not Detectd) 02/10/24 02/10/24 02/10/24 Range/Units 08:26 08:26 08:26 WBC (3.8-10.6) k/uL RBC (4.30-5.90) m/uL Hgb (13.0-17.5) gm/dL Hct (39.0-53.0) % MCV (80.0-100.0) fL MCH (25.0-35.0) pg MCHC (31.0-37.0) g/dL RDW (11.5-15.5) % Plt Count (150-450) k/uL MPV Neutrophils % % Lymphocytes % % Monocytes % % Eosinophils % % Basophils % % Neutrophils # (1.3-7.7) k/uL Lymphocytes # (1.0-4.8) k/uL Monocytes # (0-1.0) k/uL Eosinophils # (0-0.7) k/uL Basophils # (0-0.2) k/uL PT (10.0-12.5) sec INR (<1.2) APTT (22.0-30.0) sec D-Dimer (<0.60) mg/L FEU Sodium 137 (137-145) mmol/L Potassium 4.4 (3.5-5.1) mmol/L Chloride 107 (98-107) mmol/L Carbon Dioxide 22 (22-30) mmol/L Anion Gap 8 mmol/L BUN 20 (9-20) mg/dL Creatinine 1.00 (0.66-1.25) mg/dL Est GFR (CKD-EPI)AfAm 89 (>60 ml/min/1.73 sqM) Est GFR (CKD-EPI)NonAf 77 (>60 ml/min/1.73 sqM) Glucose 93 (74-99) mg/dL Plasma Lactic Acid Garrett 1.1 (0.7-2.0) mmol/L Calcium 9.3 (8.4-10.2) mg/dL Magnesium 2.2 (1.6-2.3) mg/dL Total Bilirubin 0.3 (0.2-1.3) mg/dL AST 21 (17-59) U/L ALT 15 (4-49) U/L Alkaline Phosphatase 84 (38-126) U/L Troponin I <0.012 (0.000-0.034) ng/mL NT-Pro-B Natriuret Pep 32 pg/mL Total Protein 7.0 (6.3-8.2) g/dL Albumin 4.0 (3.5-5.0) g/dL Urine Color Urine Appearance (Clear) Urine pH (5.0-8.0) Ur Specific [place] (1.001-1.035) Urine Protein (Negative) Urine Glucose (UA) (Negative) Urine Ketones (Negative) Urine Blood (Negative) Urine Nitrite (Negative) Urine Bilirubin (Negative) Urine Urobilinogen (<2.0) mg/dL Ur Leukocyte Esterase (Negative) Influenza Type A (PCR) (Not Detectd) Influenza Type B (PCR) (Not Detectd) RSV (PCR) (Not Detectd) SARS-CoV-2 (PCR) (Not Detectd) 02/10/24 Range/Units 08:26 WBC (3.8-10.6) k/uL RBC (4.30-5.90) m/uL Hgb (13.0-17.5) gm/dL Hct (39.0-53.0) % MCV (80.0-100.0) fL MCH (25.0-35.0) pg MCHC (31.0-37.0) g/dL RDW (11.5-15.5) % Plt Count (150-450) k/uL MPV Neutrophils % % Lymphocytes % % Monocytes % % Eosinophils % % Basophils % % Neutrophils # (1.3-7.7) k/uL Lymphocytes # (1.0-4.8) k/uL Monocytes # (0-1.0) k/uL Eosinophils # (0-0.7) k/uL Basophils # (0-0.2) k/uL PT (10.0-12.5) sec INR (<1.2) APTT (22.0-30.0) sec D-Dimer (<0.60) mg/L FEU Sodium (137-145) mmol/L Potassium (3.5-5.1) mmol/L Chloride (98-107) mmol/L Carbon Dioxide (22-30) mmol/L Anion Gap mmol/L BUN (9-20) mg/dL Creatinine (0.66-1.25) mg/dL Est GFR (CKD-EPI)AfAm (>60 ml/min/1.73 sqM) Est GFR (CKD-EPI)NonAf (>60 ml/min/1.73 sqM) Glucose (74-99) mg/dL Plasma Lactic Acid Garrett (0.7-2.0) mmol/L Calcium (8.4-10.2) mg/dL Magnesium (1.6-2.3) mg/dL Total Bilirubin (0.2-1.3) mg/dL AST (17-59) U/L ALT (4-49) U/L Alkaline Phosphatase (38-126) U/L Troponin I (0.000-0.034) ng/mL NT-Pro-B Natriuret Pep pg/mL Total Protein (6.3-8.2) g/dL Albumin (3.5-5.0) g/dL Urine Color Urine Appearance (Clear) Urine pH (5.0-8.0) Ur Specific [place] (1.001-1.035) Urine Protein (Negative) Urine Glucose (UA) (Negative) Urine Ketones (Negative) Urine Blood (Negative) Urine Nitrite (Negative) Urine Bilirubin (Negative) Urine Urobilinogen (<2.0) mg/dL Ur Leukocyte Esterase (Negative) Influenza Type A (PCR) Not Detected (Not Detectd) Influenza Type B (PCR) Not Detected (Not Detectd) RSV (PCR) Not Detected (Not Detectd) SARS-CoV-2 (PCR) Not Detected (Not Detectd) - EKG Data -: EKG Interpreted by Me EKG Comments: 12-lead Electrocardiogram Interpretation Note EKG was reviewed and interpreted by myself. 12-lead ECG performed at 0818 is interpreted by me as revealing normal sinus rhythm at a rate of 79 beats per minute. Rattan is normal. W[place] interval is 149 ms, QRS duration is 92 ms, QTc is 3 to 94 ms.. There were no ST or T wave abnormalities to suggest myocardial ischemia or injury. R wave progression across the precordium was satisfactory. By my interpretation this EKG is non-diagnostic for acute ischemia. Disposition Clinical Impression: Chest pain Disposition: ADMITTED IP TO THIS HOSP Condition: Stable Time of Disposition: 10:52
[2024-02-10] MEDS: ONDANSETRON 4 MG/2 ML VIAL IVP STA (08:41)
[2024-02-10] MEDS: PANTOPRAZOLE 40 MG/10 ML VIAL IVP STA (08:44)
[2024-02-10 08:51] LABS: INR 0.9 (<1.2); Partial Thromboplastin Time 24.7 sec (22.0-30.0); Prothrombin Time 9.7 sec (10.0-12.5)
[2024-02-10 08:54] LABS: ALT 15 U/L (4-49); AST 21 U/L (17-59); African American GFR (CKD) 89 (>60 ml/min/1.73 sqM); Alkaline Phosphatase 84 U/L (38-126); Anion Gap 8 mmol/L; Blood Urea Nitrogen 20 mg/dL (9-20); Calcium 9.3 mg/dL (8.4-10.2); Carbon Dioxide 22 mmol/L (22-30); Chloride 107 mmol/L (98-107); Glucose 93 mg/dL (74-99); Magnesium 2.2 mg/dL (1.6-2.3); Non-African American GFR(CKD) 77 (>60 ml/min/1.73 sqM); Potassium 4.4 mmol/L (3.5-5.1); Sodium 137 mmol/L (137-145); Total Bilirubin 0.3 mg/dL (0.2-1.3)
[2024-02-10 09:01] LABS: NT-Pro-B-Type Natriuretic Pept 32 pg/mL
[2024-02-10] MEDS: KETOROLAC 15 MG/ML 1 ML VIAL IVP STA (09:34)
--- NOTE | 2024-02-10 09:38 | XR ---
EXAMINATION TYPE: XR chest 2V DATE OF EXAM: 02/10/2024 9:08 AM CLINICAL INDICATION:Male, 68 years old with history of difficulty breathing; COMPARISON: Chest radiographs from 12/13/2021 TECHNIQUE: XR chest 2V Frontal and lateral views of the chest. FINDINGS: Lungs/Pleura: There is no evidence of pleural effusion, focal consolidation, or pneumothorax. Pulmonary vascularity: Unremarkable. Heart/mediastinum: Cardiomediastinal silhouette is unremarkable. Musculoskeletal: No acute osseous pathology. IMPRESSION: 1. No acute cardiopulmonary disease process. 2. COPD changes.
[2024-02-10] MEDS: IPRATROPIUM-ALBUTEROL 3 ML NEB INHALATION STA (09:44)
--- NOTE | 2024-02-10 10:27 | US ---
EXAMINATION TYPE: US gallbladder DATE OF EXAM: 02/10/2024 COMPARISON: PET CT 02/05/24 CLINICAL INDICATION: Male, 68 years old with history of n/v abd pain; N/V, abdominal pain. TECHNIQUE: Multiple sonographic images of the right upper quadrant are obtained. FINDINGS: EXAM MEASUREMENTS: Liver Length: 14.7 cm Gallbladder Wall: 0.15 cm CBD: 0.62 cm Right Kidney: 12.1 x 6.3 x 5.8 cm LABORATORY OPERATIONS COORDINATOR NOTES: Exam is limited due to gas. Pancreas: Tail not well visualized. Limited. Liver: Appears coarse. Gallbladder: Appears wnl Evidence for sonographic Cline's sign: No CBD: Measures upper limits. Right Kidney: *Appearance of column of Aurelio IMPRESSION: No evidence for acute process.
[2024-02-10 10:29] LABS: Appearance,Urine Clear (Clear); Bilirubin,Urine Negative (Negative); Blood,Urine Negative (Negative); Color,Urine Colorless; Glucose,Urine (UA) Negative (Negative); Ketones,Urine Negative (Negative); Leukocyte Esterase,Urine Negative (Negative); Nitrite,Urine Negative (Negative); Protein,Urine Negative (Negative); Specific Gravity,Urine 1.007 (1.001-1.035); Urobilinogen,Urine <2.0 mg/dL (<2.0)
[2024-02-10] MEDS ORDERED: ONDANSETRON 4 MG/2 ML VIAL IVP PRN (10:54)
[2024-02-10] MEDS ORDERED: NALOXONE 0.4 MG/ML 1 ML VIAL IV PRN (10:54)
[2024-02-10] MEDS: ATORVASTATIN 80 MG TAB PO SCH (11:20)
[2024-02-10] MEDS: METOPROLOL TARTRATE 25 MG TAB PO SCH (11:30)
--- NOTE | 2024-02-10 12:11 | P.HPIM ---
History of Present Illness H&P Date: 02/10/24 History of Presenting Illness: Patient is a very pleasant 68-year-old male with a past medical history of CAD with previous stent, lung cancer on immunotherapy treatments with Dr. Henriquez, hypertension, hyperlipidemia, and hearing difficulties. He presented to the emergency department with a chief complaint of near syncopal episode. Patient reports he was at work just standing there when all of a sudden felt as though he was going to pass out. Patient reports he had a tightness throughout his chest, accompanied by dizziness, lightheadedness, and shortness of breath with numbness extending up into his lower jaw. Pt states that he immediately went outside to get some air so that he did not pass out and that is when he became extremely nauseas and began vomiting and he knew he had to come to the hospital for evaluation. Patient reports the symptoms resolved shortly after arriving to the hospital. He denies any recent infections or exposure to known ill contacts, changes in vision or hearing, chills or diaphoresis, palpitations, cough or congestion, or experiencing any numbness/tingling/weakness/swelling in his extremities. Upon arrival to the emergency department, patient underwent full evaluation. Vital signs upon arrival showing blood pressure 128/80, heart rate 89, respiratory rate 20, temp 97.5 F, and SpO2 of 98% on room air EKG showing normal sinus rhythm at 79 bpm with no noted T wave or ST abnormalities showing no signs of acute ischemia upon personal review and interpretation. Chest x-ray completed but negative for acute cardiopulmonary process. Gallbladder ultrasound completed negative for acute process. Labs completed and reviewed. CBC unremarkable. Coagulation profile showing a low PT of 9.7 otherwise normal findings. D-dimer negative at 0.53. BMP unremarkable. Blood glucose 93. Lactic acid 1.1. Magnesium 2.2. Liver profile unremarkable. And troponin normal findings at less than 0.012. Urinalysis negative for infection. Influenza A, influenza B, RSV, and COVID PCR negative. Patient was admitted under our services with consultation to cardiology. Review of systems: Pertinent positives and negatives as discussed in HPI, a complete review of systems was performed and all other systems are negative. Physical exam: Vital signs reviewed and stable. General: Nontoxic, no distress and appears stated age. Derm: Skin warm and dry, normal coloration for ethnicity. Head: Atraumatic, normocephalic and symmetric. Eyes: EOMs intact, no lid lag, and anicteric sclera Mouth: no lip lesions, mucus membranes moist Cardiovascular: regular rate and rhythm with normal S1S2, no murmur noted upon auscultation, positive posterior tibial pulses bilaterally, and cap refill < 2 seconds. Lungs: Respirations even, regular, and unlabored on room air. Lungs diminished, no rhonchi, no rales, no wheezing, and no accessory muscle usage. Abdominal: soft, nontender to palpation, no guarding, no appreciable organo megaly Ext: ROM intact. No gross muscle atrophy, no edema, no contractures Neuro: Speech clear, face symmetrical and CN II-XII grossly intact with no noted focal neuro deficits Psych: Alert and oriented to person, place, time, and situation. Appropriate and pleasant affect. Assessment and Plan of Care: Near syncopal episode with reports of dizziness, lightheadedness, chest pain/tightness, shortness of breath, nausea, vomiting, and numbness in his jaw Chest pain/tightness, rule out acute coronary event History of CAD with previous stent Hypertension Hyperlipidemia -Cardiology consulted, appreciate recommendations -Telemetry monitoring -Trend troponins -Cardiac diet, NPO at midnight -Continue aspirin 81 mg daily and atorvastatin 80 mg daily. -Echocardiogram History of lung cancer -Continue to follow-up outpatient with oncology as scheduled for immunotherapy treatment after discharge Data and imaging reviewed: As stated above in HPI The patient is admitted with an anticipated less than 2 midnight stay for evaluation of chest pain/tightness with near syncopal episode CODE STATUS: Full code DVT prophylaxis: Heparin Anticipated discharge date: 24 to [address]: Home Patient was seen independently by Nurse Practitioner. This document was prepared using [employer] dictation software. Please allow for errors in concrete crusher loader operator while rare they do occur. Jacob Sofia NP rendered care for this patient independently, reviewed the findings and plan as documented in the note above. I did not physically speak with or examine the patient on this date. Past Medical History Past Medical History: Hearing Disorder / Deafness, Myocardial Infarction (CT) Additional Past Medical History / Comment(s): Hard of hearing. Last Myocardial Infarction Date:: 2015 History of Any Multi-Drug Resistant Organisms: None Reported Past Surgical History: Heart Catheterization With Stent Additional Past Surgical History / Comment(s): Stent X1. Past Anesthesia/Blood Transfusion Reactions: No Reported Reaction Date of Last Stent Placement:: 08/2016 Past Psychological History: No Psychological Hx Reported Smoking Status: Former smoker Past Alcohol Use History: Occasional Past Drug Use History: None Reported - Past Family History Brother(s) Family Medical History: Cancer Additional Family Medical History / Comment(s): Lung cancer. Medications and Allergies Home Medications Medication Instructions Recorded Confirmed Type No Known Home Medications 02/10/24 02/10/24 History Allergies Allergy/AdvReac Type Severity Reaction Status Date / Time No Known Allergies Allergy Verified 02/10/24 11:48 Physical Exam Vitals: Vital Signs Temp Pulse Resp BP Pulse Ox 02/10/24 09:52 59 L 02/10/24 09:45 62 02/10/24 09:37 67 18 94/53 97 02/10/24 08:10 97.5 F L 89 20 128/80 98 Intake and Output 02/09/24 02/10/24 02/10/24 22:59 06:59 14:59 Other: Weight 79.379 kg Results CBC & Chem 7: 02/10/24 08:26 02/10/24 08:26 Labs: Abnormal Lab Results - Last 24 Hours (Table) 02/10/24 Range/Units 08:26 PT 9.7 L (10.0-12.5) sec
--- NOTE | 2024-02-10 13:44 | P.CRDCN ---
History of Present Illness History of present illness: HISTORY OF PRESENT ILLNESS: This is a 68-year-old male with a past medical history significant for coronary artery disease with previous stenting, small cell lung cancer on immunotherapy, and former nicotine dependence. 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 We have been asked to see the patient in consultation for chest pain. Patient examined at the bedside in the emergency room. The patient states he developed nausea and dry heaves this morning. He states afterwards he began to have pain in the middle of his chest. He also reports numbness in his jaw. He states the pain felt similar to his previous [place]. He states he did not have chest pain until after he had nausea and vomiting. He states the pain was worse with deep inspiration but at this time it is not. He continues to have mild chest pressure at the time of examination. He did receive sublingual nitro which he states did not help his pain. The patient states he continues to smoke although the amount of cigarettes has decreased. DIAGNOSTICS: - EKG reveals sinus mechanism with no signs of acute ischemia. - Chest xray negative for acute process. COPD changes.. - Laboratory data: WBC 10.0. Hemoglobin 15.6. Platelet count 320. D-dimer 0.53. Sodium 137. Potassium 4.4. BUN 20. Creatinine 1.0 troponin negative x 1 proBNP 32. -Gallbladder ultrasound: Negative for acute process -Patient underwent outpatient PET scan on 02/05/2024 revealing worsening abnormal hypermetabolic uptake anterior left midlung and left hilar region consistent with active neoplastic progression - Current home cardiac medications include none. REVIEW OF SYSTEMS: At the time of my exam: CONSTITUTIONAL: Denies fever or chills. HEENT: Denies blurred vision, vision changes, or eye pain. Denies hemoptysis CARDIOVASCULAR: Denies chest pain. Denies orthopnea. Denies PND. Denies palpitations RESPIRATORY: Denies shortness of breath. GASTROINTESTINAL: Denies abdominal pain. Denies nausea or vomiting. HEMATOLOGIC: Denies bleeding disorders. GENITOURINARY: Denies any blood in urine. SKIN: Denies pruitis. Denies rash. PHYSICAL EXAM: VITAL SIGNS: Reviewed. GENERAL: Well-developed in no acute distress. HEENT: Head is normocephalic. Pupils are equal, round. Sclerae anicteric. Mucous membranes of the mouth are moist. Neck supple. No JVD or thyromegaly LUNGS: Respirations even and unlabored. Lungs essentially clear to auscultation bilaterally, diminished. HEART: Regular rate and rhythm. S1 and S2 heard. ABDOMEN: Soft. Nondistended. Nontender. EXTREMITIES: Normal range of motion. No clubbing or cyanosis. Peripheral pulses intact. No lower extremity edema NEUROLOGIC: Awake and alert. Oriented x 3. ASSESSMENT: Chest pain, troponin negative x 2 Nausea and vomiting Coronary artery disease with previous stenting to mid LAD, performed [place] Small cell lung cancer, on immunotherapy Ongoing nicotine dependence PLAN: Trend troponins Obtain 2D echo to assess cardiac structure and function Continue aspirin and atorvastatin N.p.o. at midnight for possible stress testing tomorrow Further recommendations pending patient course Nurse practitioner note has been reviewed by physician. Signing provider agrees with the documented findings, assessment, and plan of care documented by GREEN PRIZE PACKER as a scribe. Past Medical History Past Medical History: Hearing Disorder / Deafness, Myocardial Infarction (HI) Additional Past Medical History / Comment(s): Hard of hearing. Last Myocardial Infarction Date:: 2015 History of Any Multi-Drug Resistant Organisms: None Reported Past Surgical History: Heart Catheterization With Stent Additional Past Surgical History / Comment(s): Stent X1. Past Anesthesia/Blood Transfusion Reactions: No Reported Reaction Date of Last Stent Placement:: 08/2016 Past Psychological History: No Psychological Hx Reported Smoking Status: Former smoker Past Alcohol Use History: Occasional Past Drug Use History: None Reported - Past Family History Brother(s) Family Medical History: Cancer Additional Family Medical History / Comment(s): Lung cancer. Medications and Allergies Home Medications Medication Instructions Recorded Confirmed Type No Known Home Medications 02/10/24 02/10/24 History Allergies Allergy/AdvReac Type Severity Reaction Status Date / Time No Known Allergies Allergy Verified 02/10/24 11:48 Physical Exam Vitals: Vital Signs Temp Pulse Resp BP Pulse Ox 02/10/24 11:20 61 18 95/65 96 02/10/24 09:52 59 L 02/10/24 09:45 62 02/10/24 09:37 67 18 94/53 97 02/10/24 08:10 97.5 F L 89 20 128/80 98 Intake and Output 02/09/24 02/10/24 02/10/24 22:59 06:59 14:59 Other: Weight 79.379 kg Results 02/10/24 08:26 02/10/24 08:26 Cardiac Enzymes 02/10/24 02/10/24 Range/Units 08:26 08:26 AST 21 (17-59) U/L Troponin I <0.012 (0.000-0.034) ng/mL Coagulation 02/10/24 Range/Units 08:26 PT 9.7 L (10.0-12.5) sec APTT 24.7 (22.0-30.0) sec CBC 02/10/24 Range/Units 08:26 WBC 10.0 (3.8-10.6) k/uL RBC 4.74 (4.30-5.90) m/uL Hgb 15.6 (13.0-17.5) gm/dL Hct 46.9 (39.0-53.0) % Plt Count 320 (150-450) k/uL Comprehensive Metabolic Panel 02/10/24 Range/Units 08:26 Sodium 137 (137-145) mmol/L Potassium 4.4 (3.5-5.1) mmol/L Chloride 107 (98-107) mmol/L Carbon Dioxide 22 (22-30) mmol/L BUN 20 (9-20) mg/dL Creatinine 1.00 (0.66-1.25) mg/dL Glucose 93 (74-99) mg/dL Calcium 9.3 (8.4-10.2) mg/dL AST 21 (17-59) U/L ALT 15 (4-49) U/L Alkaline Phosphatase 84 (38-126) U/L Total Protein 7.0 (6.3-8.2) g/dL Albumin 4.0 (3.5-5.0) g/dL Current Medications Generic Name Dose Route Start Last Admin Trade Name Freq PRN Reason Stop Dose Admin Aspirin 81 mg 02/11/24 09:00 Aspirin 81 Mg PO DAILY ON LICENSE OF [facility] Atorvastatin Calcium 80 mg 02/10/24 11:30 02/10/24 11:20 Atorvastatin 80 Mg Tab PO 80 mg DAILY ON LICENSE OF [facility] Administration Heparin Sodium (Porcine) 5,000 unit 02/10/24 16:00 Heparin Sodium,Porcine 5,000 Unit/Ml 1 Ml Vial SQ Q8HR ON LICENSE OF [facility] Metoprolol Tartrate 25 mg 02/10/24 11:30 02/10/24 11:30 Metoprolol Tartrate 25 Mg Tab PO Not Given BID SAV Naloxone HCl 0.2 mg 02/10/24 10:54 Naloxone 0.4 Mg/Ml 1 Ml Vial IV Q2M PRN Opioid Reversal Ondansetron HCl 4 mg 02/10/24 10:54 Ondansetron 4 Mg/2 Ml Vial IVP Q8HR PRN Nausea And Vomiting Intake and Output 02/09/24 02/10/24 02/10/24 22:59 06:59 14:59 Other: Weight 79.379 kg Patient Weight 02/11/24 06:59 Weight 79.379 kg 02/10/24 08:26 02/10/24 08:26
[2024-02-10] MEDS: HEPARIN SODIUM,PORCINE 5,000 UNIT/ML 1 ML VIAL SQ SCH (15:50)
[2024-02-11 05:20] VITALS: RESP 16
[2024-02-11] MEDS: PANTOPRAZOLE 40 MG TABLET PO SCH (06:25)
[2024-02-11 08:12] VITALS: BP 102/63; PULSE 92; TEMP 97.8
[2024-02-11] MEDS ORDERED: AMINOPHYLLINE 500 MG/20 ML VIAL IV PRN (08:19)
[2024-02-11] MEDS ORDERED: CAFFEINE CITRATE 60 MG/3 ML VIAL IV PRN (08:19)
[2024-02-11] MEDS ORDERED: REGADENOSON 0.4 MG/5 ML SYRINGE IV PRN (08:19)
[2024-02-11 08:47] LABS: Basophils # (A) 0.04 X 10*3/uL (0.00-0.10); Basophils % (A) 0.5 %; Eosinophils # (A) 0.22 X 10*3/uL (0.04-0.35); Eosinophils % (A) 2.5 %; HCT 39.2 % (39.6-50.0); HGB 13.4 g/dL (13.0-17.0); Lymphocytes # (A) 2.47 X 10*3/uL (0.90-5.00); Lymphocytes % (A) 27.8 %; MCH 32.7 pg (27.0-32.0); MCHC 34.2 g/dL (32.0-37.0); MCV 95.6 FL (80.0-97.0); Mean Platelet Volume 9.5 FL (9.5-12.2); Monocytes # (A) 0.85 X 10*3/uL (0.20-1.00); Monocytes % (A) 9.6 %; NRBC Per 100 WBC 0 X 10*3/uL (0.00-0.01); Neutrophils # (A) 5.26 X 10*3/uL (1.80-7.70); Neutrophils % (A) 59.3 %; Platelet Count 258 X 10*3/uL (140-440); RDW 13.4 % (11.5-14.5); WBC 8.87 X 10*3/uL (4.50-10.00)
[2024-02-11 08:58] LABS: BUN/Creat Ratio 14.45 Ratio (12.00-20.00); Blood Urea Nitrogen 15.9 mg/dL (9.0-27.0); Calcium 8.6 mg/dL (8.7-10.3); Carbon Dioxide 23.6 mmol/L (21.6-31.8); Chloride 106 mmol/L (96-109); Glucose 88 mg/dL (70-110); Potassium 4.6 mmol/L (3.5-5.5); Sodium 137 mmol/L (135-145)
--- NOTE | 2024-02-11 09:13 | CA ---
Transthoracic Echo Report Name: Raz You Age: 68 Gender: M : 1955 Exam Date: 02/10/2024 13:13 Exam Location: [facility] Ht (in): 73 Wt (lb): 175 Ordering Physician: Paola Hamilton Attending/Referring Phys: [id number], Joy Websphere Administrator Maira Riddle RDCS Procedure CPT: Indications: LV function, Chest pain, lung cancer Cardiac Hx: Technical Quality: Good Contrast 1: Total Dose (mL): Contrast 2: Total Dose (mL): MEASUREMENTS (Male / Female) Normal Values 2D ECHO LV Diastolic Diameter PLAX 4.3 cm 4.2 - 5.9 / 3.9 - 5.3 cm LV Systolic Diameter PLAX 3.3 cm IVS Diastolic Thickness 1.2 cm 0.6 - 1.0 / 0.6 - 0.9 cm LVPW Diastolic Thickness 1.2 cm 0.6 - 1.0 / 0.6 - 0.9 cm LV Relative Wall Thickness 0.6 RV Internal Dim ED PLAX 3.5 cm LV Diastolic Volume MOD 4C 85.2 cm??? LV Systolic Volume MOD 4C 39.2 cm??? LV Ejection Fraction MOD 4C 54.0 % LV Cardiac Index MOD 4C 1342.5 cm???/min???m??? LV Diastolic Length 4C 7.3 cm LV Systolic Length 4C 5.8 cm LV Diastolic Volume MOD 2C 82.7 cm??? LV Systolic Volume MOD 2C 31.3 cm??? LV Ejection Fraction MOD 2C 62.1 % LV Cardiac Index MOD 2C 1500.4 cm???/min???m??? LV Diastolic Length 2C 8.5 cm LV Systolic Length 2C 6.7 cm LA Volume 45.7 cm??? 18 - 58 / 22 - 52 cm??? LA Volume Index 22.6 cm???/m??? 16 - 28 cm???/m??? M-MODE Aortic Root Diameter MM 3.9 cm DOPPLER AV Peak Velocity 98.2 cm/s AV Peak Gradient 3.9 mmHg MV E' Velocity 9.7 cm/s TR Peak Velocity 243.6 cm/s TR Peak Gradient 23.7 mmHg Right Ventricular Systolic Press 33.7 mmHg FINDINGS Left Ventricle Left ventricular ejection fraction is estimated at 50 %. Left ventricular cavity size normal. Mildly increased septal wall thickness. Right Ventricle Mild right ventricular dilatation. Borderline PHTN.right ventricular systolic pressure estimated at 34 mm hg. Right Atrium Normal right atrial size. Left Atrium Normal left atrial size. Mitral Valve Structurally normal mitral valve. Mitral annular calcification. Trace mitral regurgitation. Aortic Valve Trileaflet aortic valve. No aortic valve stenosis or regurgitation. Tricuspid Valve Structurally normal tricuspid valve. Mild to moderate tricuspid regurgitation. Pulmonic Valve Structurally normal pulmonic valve. No pulmonic regurgitation. Pericardium No pericardial effusion. Aorta Mild aortic dilatation at the level of the sinuses of valsalva 39 mm CONCLUSIONS Low normal LV systolic function was EF at 50% Mild pulmonary hypertension. The pulmonary artery systolic pressure is 35 mmHg Mild right ventricular dilatation Onnt-ru-sidptdux tricuspid regurgitation Previewed by: Dr. Jose Gonzalez MD (Electronically Signed) Final Date: 11 February 2024 09:12
[2024-02-11] MEDS: ASPIRIN 81 MG PO SCH (09:17)
--- NOTE | 2024-02-11 10:03 | P.PN ---
Subjective HISTORY OF PRESENT ILLNESS: This is a 68-year-old male with a past medical history significant for coronary artery disease with previous stenting, small cell lung cancer on immunotherapy, and former nicotine dependence. 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 We have been asked to see the patient in consultation for chest pain. Patient ex amined at the bedside in the emergency room. The patient states he developed nausea and dry heaves this morning. He states afterwards he began to have pain in the middle of his chest. He also reports numbness in his jaw. He states the pain felt similar to his previous [place]. He states he did not have chest pain until after he had nausea and vomiting. He states the pain was worse with deep inspiration but at this time it is not. He continues to have mild chest pressure at the time of examination. He did receive sublingual nitro which he states did not help his pain. The patient states he continues to smoke although the amount of cigarettes has decreased. DIAGNOSTICS: - EKG reveals sinus mechanism with no signs of acute ischemia. - Chest xray negative for acute process. COPD changes.. - Laboratory data: WBC 10.0. Hemoglobin 15.6. Platelet count 320. D-dimer 0.53. Sodium 137. Potassium 4.4. BUN 20. Creatinine 1.0 troponin negative x 1 proBNP 32. -Gallbladder ultrasound: Negative for acute process -Patient underwent outpatient PET scan on 02/05/2024 revealing worsening abnormal hypermetabolic uptake anterior left midlung and left hilar region consistent with active neoplastic progression - Current home cardiac medications include none. 02/11/2024 Patient examined this morning at the bedside. Patient denies any further episodes of chest pain or pressure. He denies shortness of breath. Echocardiogram completed revealing ejection fraction 50%, mild pulmonary hypertension, mild right ventricular dilation, and mild to moderate TR. PHYSICAL EXAM: VITAL SIGNS: Reviewed. GENERAL: Well-developed in no acute distress. HEENT: Head is normocephalic. Pupils are equal, round. Sclerae anicteric. Mucous membranes of the mouth are moist. Neck supple. No JVD or thyromegaly LUNGS: Respirations even and unlabored. Lungs essentially clear to auscultation bilaterally, diminished. HEART: Regular rate and rhythm. S1 and S2 heard. ABDOMEN: Soft. Nondistended. Nontender. EXTREMITIES: Normal range of motion. No clubbing or cyanosis. Peripheral pulses intact. No lower extremity edema NEUROLOGIC: Awake and alert. Oriented x 3. ASSESSMENT: Chest pain, troponin negative x 3 Nausea and vomiting Coronary artery disease with previous stenting to mid LAD, performed [place] Small cell lung cancer, on immunotherapy Ongoing nicotine dependence PLAN: Continue current cardiac medications Patient to undergo Lexiscan stress test today If negative, he may be discharged home from a cardiac standpoint Nurse practitioner note has been reviewed by physician. Signing provider agrees with the documented findings, assessment, and plan of care documented by SAUSAGE STRINGER as a scribe. Objective - Vital Signs Vital signs: Vital Signs Temp 97.8 F 02/11/24 07:00 Pulse 92 02/11/24 07:00 Resp 16 02/11/24 01:23 BP 102/63 02/11/24 07:00 Pulse Ox 93 L 02/11/24 07:00 FiO2 Intake & Output 02/10/24 02/11/24 02/11/24 18:59 06:59 18:59 Intake Total 180 Balance 180 Weight 79.379 kg Intake: Oral 180 Other: # Voids 2 - Labs CBC & Chem 7: 02/11/24 06:23 02/11/24 06:23 Labs: Abnormal Lab Results - Last 24 Hours (Table) 02/11/24 02/11/24 Range/Units 06:23 06:23 RBC 4.10 L (4.40-5.60) X 10*6/uL Hct 39.2 L (39.6-50.0) % MCH 32.7 H (27.0-32.0) pg Calcium 8.6 L (8.7-10.3) mg/dL
--- NOTE | 2024-02-11 12:39 | NM ---
EXAMINATION TYPE: NM stress lexiscan cardiolite DATE OF EXAM: 02/11/2024 COMPARISON: NONE CLINICAL INDICATION: Male, 68 years old with history of CP; TECHNIQUE: After the intravenous administration of 9.96 mCi Tc 99m Sestamibi - Cardiolite resting SP ECT images acquired 45 minutes post injection. The patient received 0.4mg Lexiscan, 26.6 mCi Tc 99m Sestamibi - Stress images obtained [address] injection FINDINGS: Review of stress and rest SPECT images demonstrates no distinct perfusion abnormality. Gated analysi s shows some decreased perfusion along the inferior wall on stress but there is satisfactory augmenta tion suggesting diaphragmatic attenuation. Polar maps also show no abnormality here. Normal wall tricia on with an estimated left ventricular ejection fraction of 59 %. TID is upper limits of normal at 1. 10. IMPRESSION: Some diaphragmatic attenuation artifact. No convincing scintigraphic evidence for reversi ble ischemia.
--- NOTE | 2024-02-11 12:39 | CA ---
Lexiscan Nuclear Stress Test Report Name: Raz You Exam Date: 02/11/2024 10:56 Exam Location: [facility] Ht (in): 73 Wt (lb): 175 BSA: 2.03 Ordering Phys: Paola Hamilton Referring Phys: JOSE GONZALEZ,, Technologist: Sohail Garza Age: 68 Gender: M : 1955 Procedure CPT: Indications: Reflex order-Stress test ICD-10 Codes: Patient History: Medications: SEE CHART Meds past 24 hrs: Pretest Chest Pain: STRESS TEST Lexiscan Protocol Exercise Duration (min:sec): 02:[address] Depressions (mm): Angina Score: Coleman Score: Resting HR (bpm): 59 Peak HR (bpm): 94 Resting BP (mmHg): 97 / 66 Peak BP (mmHg): 118 / 73 MPHR: 152 Target HR: 129 % MPHR: 62 METS: 1.0 Total Dose: Peak Dose: Atropine: Double Product: 47404 BP Response: Stress Termination: PROTOCOL COMPLETE Stress Symptoms: NO SYMPTOMS Stress Summary: ECG ANALYSIS Resting ECG: Stress ECG: CONCLUSIONS Nondiagnostic stress testing Dr. Jose Gonzalez MD (Electronically Signed) Final Date: 11 February 2024 12:38
--- NOTE | 2024-02-11 15:35 | P.DS ---
Providers Date of admission: 02/10/24 10:54 Expected date of discharge: 02/11/24 Attending physician: Los Mosquera MD Primary care physician: Raul [facility] Course: 68-year-old male with a past medical history of CAD with previous stent, lung cancer on immunotherapy treatments with Dr. Henriquez, hypertension, hyperlipidemia, and hearing difficulties. He presented to the emergency department with a chief complaint of near syncopal episode. Patient reports he was at work just standing there when all of a sudden felt as though he was going to pass out. Patient reports he had a tightness throughout his chest, accompanied by dizziness, lightheadedness, and shortness of breath with numbness extending up into his lower jaw. Pt states that he immediately went outside to get some air so that he did not pass out and that is when he became extremely nauseas and began vomiting and he knew he had to come to the hospital for evaluation. Patient reports the symptoms resolved shortly after arriving to the hospital. He denies any recent infections or exposure to known ill contacts, changes in vision or hearing, chills or diaphoresis, palpitations, cough or congestion, or experiencing any numbness/tingling/weakness/swelling in his extremities. Upon arrival to the emergency department, patient underwent full evaluation. Vital signs upon arrival showing blood pressure 128/80, heart rate 89, respiratory rate 20, temp 97.5 F, and SpO2 of 98% on room air EKG showing normal sinus rhythm at 79 bpm with no noted T wave or ST abnormalities showing no signs of acute ischemia upon personal review and interpretation. Chest x-ray completed but negative for acute cardiopulmonary process. Gallbladder ultrasound completed negative for acute process. CBC unremarkable. Coagulation profile showing a low PT of 9.7 otherwise normal findings. D-dimer negative at 0.53. BMP unremarkable. Lactic acid 1.1. Magnesium 2.2. Liver profile unremarkable. Troponin normal findings at less than 0.012. Urinalysis negative for infection. Influenza A, influenza B, RSV, and COVID PCR negative. Patient was admitted under our services with consultation to cardiology. Cardiology consulted, recommended Echo and stress test. Troponins trended and negative x 3. Echo EF 50% mild pulmonary HTN, mild RV dilation, mild-mod TR. Stress test was negative. GB US negative as well. 02/10 Patient was seen and examined. Seen after stress test. Chest pain free. He will be discharged on ASA, Lipitor and Metoprolol. Advised to follow up with PCP for re-fills and Cardiology to establish care in the outpatient setting. General: non toxic, no distress, appears at stated age Derm: warm, dry Head: atraumatic, normocephalic, symmetric Eyes: EOMI, no lid lag, anicteric sclera Mouth: no lip lesion, mucus membranes moist Cardiovascular: S1S2 reg, no murmur Lungs: CTA bilateral, no rhonchi, no rales , no accessory muscle use Psych: Alert, oriented, appropriate affect Discharge Diagnosis: Near syncopal episode with reports of dizziness, lightheadedness, chest pain/tightness, shortness of breath, nausea, vomiting, and numbness in his jaw Chest pain/tightness, rule out acute coronary event History of CAD with previous stent Hypertension Hyperlipidemia This complex discharge took 35 minutes to complete. Patient Condition at Discharge: Stable Plan - Discharge Summary Discharge Rx Participant: No New Discharge Prescriptions: New Metoprolol Succinate (ER) [Toprol XL] 12.5 mg PO DAILY #30 tab Aspirin 81 mg PO DAILY #30 tab Atorvastatin [Lipitor] 80 mg PO DAILY #30 tab Pantoprazole [Protonix] 40 mg PO AC-BRKFST #30 tab Discharge Medication List Aspirin 81 mg PO DAILY #30 tab 02/11/24 [Rx] Atorvastatin [Lipitor] 80 mg PO DAILY #30 tab 02/11/24 [Rx] Metoprolol Succinate (ER) [Toprol XL] 12.5 mg PO DAILY #30 tab 02/11/24 [Rx] Pantoprazole [Protonix] 40 mg PO AC-BRKFST #30 tab 02/11/24 [Rx] Follow up Appointment(s)/Referral(s): Jose Gonzalez MD [STAFF PHYSICIAN] - 1 Week (office will call and schedule appointment ) Raul Scott DO [Primary Care Provider] - 1-2 days Patient Instructions/Handouts: Chest Pain (DC) Discharge Disposition: HOME SELF-CARE
[2024-02-12] MEDS ORDERED: METOPROLOL SUCCINATE (ER) 25 MG TAB.ER.24H PO SCH (09:00)
== END 2024-02-11 16:32 | disposition home or self-care (01) ==
LOC: EC 08:07 → 6NMEDSUR 10:54
PROVIDERS: ADMIT Student in an Organized Health Care Education/Training Program; ATTEND Student in an Organized Health Care Education/Training Program
DX: R07.89 Other chest pain (principal); R11.2 Nausea with vomiting, unspecified; R55 Syncope and collapse; R42 Dizziness and giddiness; R06.02 Shortness of breath; R20.0 Anesthesia of skin; I25.10 Atherosclerotic heart disease of native coronary artery without angina pectoris; I10 Essential (primary) hypertension; E78.5 Hyperlipidemia, unspecified; I25.2 Old myocardial infarction; F17.210 Nicotine dependence, cigarettes, uncomplicated; Z95.5 Presence of coronary angioplasty implant and graft; Z85.118 Personal history of other malignant neoplasm of bronchus and lung; Z79.82 Long term (current) use of aspirin; Z79.899 Other long term (current) drug therapy
CPT/HCPCS: 96361 ×2; 96372 ×3; 96374; 96375; 99285; 36415; 94640; 93005; 93017; 93306; 85379; 83880; 80053; 80048; 83605; 83735; 84484; 85025 ×2; 85610; 85730; 81003; 87636; 71046; 76705; 78452; G0378 ×2; A9500; J1644 ×2; J2405; J2785; J1885; C9113

== ENCOUNTER → 2024-08-05 | Outpatient (CLI) | payer MEDICARE, OTHER ==
--- NOTE | 2024-08-17 09:26 | PE ---
EXAMINATION TYPE: PET CT fusion skull to thigh DATE OF EXAM: 08/05/2024 CLINICAL INDICATION:Male, 68 years old with history of C34.32 NON SMALL LUNG CANCER TRT MONITORING; TECHNIQUE: Following the intravenous administration of 10.8 mCi of F-18 FDG, whole body images are performed from the skull base to the midthigh. Images are reviewed on the computer in the coronal, a xial, and sagittal planes. Reconstructed rotating images are created on independent workstation and reviewed on the computer. A non-contrast CT is performed in conjunction with the PET scan. Glucose level 103 mg/dL CT DLP: 311 mGycm, Automated exposure control for dose reduction was used. COMPARISON: CT None, PET/CT 02/05/2024, MRI: None FINDINGS: Mediastinal SUV mean is 2.2. Hepatic parenchyma SUV mean is 2.8 SKULL BASE AND NECK: No suspicious radiotracer activity. CHEST, MEDIASTINUM, AND HILAR REGION: * Left pulmonary hilum lymph nodes max SUV 9.0, previously 6.3, measurements are difficult without I V contrast. * Left inferior pulmonary hilum lymph node max SUV 8.1, previously 3.5, measurements are difficult w ithout IV contrast. * Anterior left upper lung nodule Max SUV 5.8, previously 5.9 cm area of parenchymal scarring. Not s ignificantly changed morphology from 02/05/2024 Suspected physiologic uptake near aortic valve max SUV 4.8. ABDOMEN AND PELVIS: No suspicious radiotracer activity. MUSCULOSKELETAL STRUCTURES: No suspicious radiotracer activity. Physiologic uptake within the left sh oulder rotator cuff max SUV 5.4. Left hip max SUV 7.8. OTHER CT: Atherosclerosis of the carotid bifurcations and coronary arteries. Moderate to large amount of stool throughout the colon. Vasectomy clips bilaterally. IMPRESSION: Increasing radiotracer activity within the left pulmonary hilum lymph nodes concerning for progressio n of disease. [facility], , 08/17/2024 9:24 AM
== END | disposition home or self-care (01) ==
LOC: RADPETMAIN 11:56
PROVIDERS: ATTEND Internal Medicine Hematology & Oncology
DX: C34.32 Malignant neoplasm of lower lobe, left bronchus or lung (principal); E78.5 Hyperlipidemia, unspecified; I10 Essential (primary) hypertension; I25.2 Old myocardial infarction; R59.0 Localized enlarged lymph nodes
CPT/HCPCS: 78815; A9552

== ENCOUNTER → 2024-12-16 | Outpatient (CLI) | payer MEDICARE, OTHER ==
--- NOTE | 2024-12-17 23:59 | PE ---
EXAMINATION TYPE: PET CT fusion skull to thigh DATE OF EXAM: 12/16/2024 COMPARISON: No recent pertinent CT Prior PET/CT: 08/05/2024 CLINICAL INDICATION: Male, 69 years old with history of C34.32 LUNG CANCER, TECHNIQUE: Following the intravenous administration of 11.10 mCi of F-18 FDG, whole body images are performed from the skull base to the midthigh. Images are reviewed on the computer in the coronal, a xial, and sagittal planes. Reconstructed rotating images are created on independent workstation and reviewed on the computer. A localization and attenuation correction CT is performed in conjunction with the PET scan. DLP: 606.7 mGycm SCAN: Subsequent Blood glucose: 92 mg/dL Average Mediastinum SUV: 2.06 Average Liver SUV: 2.35 FINDINGS: NECK: No abnormal uptake THORAX: Punctate areas of hyperintensity within the left suprahilar region, image 97, lateral uptake 5.23 slightly more medial measures 4.75. There is a punctate area of uptake within the anterior right mid lung. Image 24, SUV 5.97. There is a punctate area of uptake within the posterior left midlung, image 107, SUV 8.27 ABDOMEN: No abnormal uptake PELVIS: No abnormal uptake OSSEOUS STRUCTURES: No abnormal uptake LOCALIZATION CT: Emphysematous changes are present in the bilateral lung mason. The focal uptake wit hin the anterior left lung is along the mediastinal border within the lung field COMPARISON: Findings appear stable from the prior examination. New foci of abnormal radiotracer not i dentified. IMPRESSION: 1. Stable appearance of prior findings within the left lung including the anterior mediastinal lung f ield, in the left suprahilar region, and in the posterior inferior hilar regions. 2. No new abnormal radiotracer accumulation. [facility], , 12/17/2024 11:56 PM
== END | disposition home or self-care (01) ==
LOC: RADPETMAIN 10:51
PROVIDERS: ATTEND Internal Medicine Hematology & Oncology
DX: C34.32 Malignant neoplasm of lower lobe, left bronchus or lung (principal)
CPT/HCPCS: 78815; A9552

== ENCOUNTER → 2025-06-16 | Outpatient (CLI) | payer MEDICARE, OTHER ==
--- NOTE | 2025-06-17 09:19 | PE ---
EXAMINATION TYPE: PET CT fusion skull to thigh DATE OF EXAM: 06/16/2025 CLINICAL INDICATION:Male, 69 years old with history of C34.32 lung ca; TECHNIQUE: Following the intravenous administration of 10.70 mCi of F-18 FDG, whole body images are performed from the skull base to the Mid thigh. Images are reviewed on the computer in the coronal, axial, and sagittal planes. Reconstructed rotating images are created on independent workstation an d reviewed on the computer. A non-contrast CT is performed in conjunction with the PET scan. Glucos e level 92 mg/dL CT DLP: 1060 mGycm, Automated exposure control for dose reduction was used. COMPARISON: CT 12/16/2024, 08/05/2024, PET/CT None, MRI: None FINDINGS: Mediastinal SUV mean is 2.7. Hepatic parenchyma SUV mean is 3.1 SKULL BASE AND NECK: No suspicious radiotracer activity. CHEST, MEDIASTINUM, AND HILAR REGION: * Left pulmonary hilum lymph nodes max SUV 12.3, previously 8.3, 9.0, 6.3, measurements are difficul t without IV contrast. * Left inferior pulmonary hilum nodule max SUV 12.5 previously 8.3, 8.1, 3.5, measurements are diffi cult without IV contrast.r some may measure up to 11 mm previously 9 mm. * Anterior left upper lung nodule Max SUV 9.0, previously 6.7 5.8, 5.9 cm area of parenchymal scarri ng. Not significantly changed morphology from 02/05/2024 Suspected physiologic uptake near aortic valve max SUV 4.8. ABDOMEN AND PELVIS: No suspicious radiotracer activity. MUSCULOSKELETAL STRUCTURES: No suspicious radiotracer activity. Physiologic uptake within the left sh oulder rotator cuff max SUV 5.4. Left hip max SUV 7.8. OTHER CT: Atherosclerosis of the carotid bifurcations and coronary arteries. Moderate to large amount of stool throughout the colon. Vasectomy clips bilaterally. IMPRESSION: Progression of disease with increasing radiotracer activity within the left pulmonary hilum lymph nod es pulmonary nodules. [facility], , 06/17/2025 9:16 AM
== END | disposition home or self-care (01) ==
LOC: RADPETMAIN 10:49
PROVIDERS: ATTEND Internal Medicine Hematology & Oncology
DX: C34.32 Malignant neoplasm of lower lobe, left bronchus or lung (principal); R91.8 Other nonspecific abnormal finding of lung field
CPT/HCPCS: 78815; A9552